=== PATIENT | female | born 1995 | race Hispanic/Latino ===

== ENCOUNTER 2017-12-17 13:35 | Inpatient (IN) | payer OTHER ==
[~2017-12-17 13:35] MED LIST: Bupivacaine/Epinephrine 0.25% 30 ML VIAL ONE
[2017-12-17 14:03] VITALS: BMI 27.6
[2017-12-17] MEDS ORDERED: Docusate 100 MG CAP PO PRN (14:41)
[2017-12-17] MEDS ORDERED: HYDROcodone/Acetaminophen 5/325 mg Tablet PO PRN ×2 (14:41)
[2017-12-17] MEDS ORDERED: Ondansetron HCl/PF 4 MG/2 ML Vial IVP PRN ×2 (14:41→17:58)
[2017-12-17] MEDS ORDERED: Acetaminophen 500 MG TAB PO PRN (14:41)
[2017-12-17] MEDS ORDERED: Misoprostol 200 MCG TAB PR PRN (14:41)
[2017-12-17] MEDS ORDERED: Promethazine HCl 25 MG/ML VIAL IM PRN (14:41)
[2017-12-17] MEDS ORDERED: Diphenoxylate HCl/Atropine Tablet PO PRN ×2 (14:41)
[2017-12-17] MEDS ORDERED: Ibuprofen 800 MG TAB PO PRN (14:41)
[2017-12-17] MEDS ORDERED: Zolpidem Tartrate 5 MG TAB PO PRN ×2 (14:41→17:58)
[2017-12-17] MEDS ORDERED: NS / Oxytocin 40 units/1000ml 1,000 ML IV PRN (14:41)
[2017-12-17] MEDS ORDERED: Butorphanol Tartrate 1 MG/ML VIAL SLOW IVP PRN (14:41)
[2017-12-17] MEDS ORDERED: Lidocaine 1% (PF) 30 ML VIAL SC PRN (14:41)
[2017-12-17] MEDS ORDERED: NS w/ Oxytocin 10 units 500 ML IV SCH (14:45)
[2017-12-17] MEDS ORDERED: DISCONTINUE ALL PREVIOUS NARCOTICS FS SCH (15:15)
[2017-12-17] MEDS ORDERED: Bupivacaine 0.5% 20 ML, fentaNYL Citrate/PF 400 MCG in Sodium Chloride 0.9% 72 ML EPIDURAL SCH (15:15)
[2017-12-17 15:27] LABS: Hemoglobin 12.5 g/dL (12.0-16.0); Mean Corpuscular HGB CONC 35.6 g/dL (32.0-36.0); Mean Corpuscular Hemoglobin 30.2 pg (27.0-31.0); Mean Corpuscular Volume 84.7 fL (78.0-98.0); Mean Platelet Volume 9.1 fL (7.4-10.4); Platelet Count 174 thou/uL (130-400); RBC Distribution Width 12.8 % (11.5-14.5); Red Blood Cell (RBC) Count 4.14 mill/uL (4.20-5.40); White Blood Cell (WBC) Count 12.6 thou/uL (4.8-10.8)
[2017-12-17 16:01] LABS: Syphilis Antibody Nonreactive (Nonreactive); Syphilis Antibody Index 0.04 S/CO (<1.00 Non-Reactive)
[2017-12-17 16:02] LABS: HBSAg Index 0.21 S/CO (0-0.99); Hep B Surf Ag Non-Reactive S/CO (NonReactive)
[2017-12-17] MEDS ORDERED: Lactated Ringer's 500 ML IV PRN (16:17)
[2017-12-17] MEDS ORDERED: Naloxone HCl 0.4 mg/ml Vial IVP PRN ×2 (16:17)
[2017-12-17] MEDS ORDERED: Eucerin (Mineral Oil/Petrolatum,White) 30 gm Jar TOP PRN (16:17)
[2017-12-17] MEDS ORDERED: ePHEDrine/0.9% NaCl/PF SYRINGE 50 mg/10 ml SLOW IVP PRN (16:17)
[2017-12-17] MEDS ORDERED: Communication Order-Pharmacy FS SCH (16:30)
[2017-12-17] MEDS ORDERED: fentaNYL Citrate/PF 400 MCG, Bupivacaine 0.5% 20 ML in Sodium Chloride 0.9% 72 ML EPIDURAL SCH (16:30)
[2017-12-17] MEDS ORDERED: Acetaminophen/Codeine 30-300mg Tablet PO PRN ×2 (17:58)
[2017-12-17] MEDS ORDERED: Lanolin Ointment 7 GM TUBE TOP PRN (17:58)
[2017-12-17] MEDS ORDERED: diphenhydrAMINE 25 MG CAP PO PRN (17:58)
[2017-12-17] MEDS ORDERED: Preparation H Ointment 28 GM TUBE PR PRN (17:58)
[2017-12-17] MEDS ORDERED: Bisacodyl 10 MG SUPP PR PRN (17:58)
[2017-12-17] MEDS ORDERED: Benzocaine/Menthol 20-0.5% 60 ML CAN TOP PRN (17:58)
[2017-12-17] MEDS ORDERED: Milk Of Magnesia 30 ML UDCUP PO PRN (17:58)
[2017-12-17] MEDS ORDERED: NS / Oxytocin 40 units/1000ml 1,000 ML IV SCH (18:00)
[2017-12-17] MEDS ORDERED: Adacel (T-DAP) 0.5 ML VIAL IM ONE (18:30)
[2017-12-17] MEDS: Ibuprofen 800 MG TAB PO SCH (22:28)
[2017-12-17] MEDS: Docusate Calcium (SURFAK) 240 MG CAP PO SCH (22:28)
[2017-12-18 05:31] LABS: Hemoglobin 12.4 g/dL (12.0-16.0); Mean Corpuscular HGB CONC 35.1 g/dL (32.0-36.0); Mean Corpuscular Hemoglobin 30.1 pg (27.0-31.0); Mean Corpuscular Volume 85.7 fL (78.0-98.0); Platelet Count 167 thou/uL (130-400); RBC Distribution Width 12.8 % (11.5-14.5); Red Blood Cell (RBC) Count 4.13 mill/uL (4.20-5.40); White Blood Cell (WBC) Count 13.8 thou/uL (4.8-10.8)
[2017-12-18] MEDS: Ibuprofen 800 MG TAB PO SCH ×3 (06:09→22:16)
[2017-12-18] MEDS: Prenatal Vitamin 1 TAB PO SCH (08:31)
[2017-12-18] MEDS: Ferrous Sulfate 325 MG TAB PO SCH ×2 (08:31→15:37)
[2017-12-18] MEDS: Docusate Calcium (SURFAK) 240 MG CAP PO SCH ×2 (08:31→22:16)
[2017-12-19] MEDS: Ibuprofen 800 MG TAB PO SCH ×2 (05:51→14:13)
[2017-12-19] MEDS: Ferrous Sulfate 325 MG TAB PO SCH (08:01)
[2017-12-19 08:34] VITALS: BP 128/65; TEMP 97.7
[2017-12-19] MEDS: Prenatal Vitamin 1 TAB PO SCH (09:47)
[2017-12-19] MEDS: Docusate Calcium (SURFAK) 240 MG CAP PO SCH (09:48)
== END 2017-12-19 14:40 | disposition home or self-care (01) | DRG 775 ==
LOC: L&D/OP 13:35 → L&D 15:03 → 3SE 20:59
PROVIDERS: ADMIT Obstetrics & Gynecology; ATTEND Obstetrics & Gynecology
PROC: 10E0XZZ Delivery of Products of Conception, External Approach (ICD-10-PCS; principal; 2017-12-17)
DX: O80 Encounter for full-term uncomplicated delivery (principal); Z3A.38 38 weeks gestation of pregnancy; Z37.0 Single live birth
CPT/HCPCS: 36415; 51702; 85027; 86780; 86850; 86900; 86901; 87340; 99285; J0595; J2001; J2405; J3010; J3490; J7050